=== PATIENT | female | born 1940 | race Caucasian/White ===

== ENCOUNTER 2018-01-25 07:12 | Observation (INO) | payer OTHER, MEDICAID ==
[2018-01-23 11:23] VITALS: BP 93/61
[2018-01-23 11:27] LABS: BASOPHILS # (AUTO) 0.02 x10^3/uL (0-0.1); BASOPHILS % (AUTO) 0 % (0-1); EOSINOPHILS # (AUTO) 0.04 x10^3/uL (0-0.4); EOSINOPHILS % (AUTO) 1 % (1-7); LYMPHOCYTES # (AUTO) 1.27 x10^3/uL (1-3.4); LYMPHOCYTES % (AUTO) 25 % (22-44); MD NO; MEAN CORPUSCULAR HEMOGLOBIN 20.8 pg (27.0-34.8); MEAN CORPUSCULAR HGB CONC 30.7 g/dL (32.4-35.8); MEAN CORPUSCULAR VOLUME 67.7 fL (80-100); MEAN PLATELET VOLUME 8.8 fL (7.4-10.4); MONOCYTES # (AUTO) 0.48 x10^3/uL (0.2-0.8); MONOCYTES % (AUTO) 9 % (2-9); NEUTROPHILS # (AUTO) 3.27 x10^3/uL (1.8-6.8); NEUTROPHILS % (AUTO) 65 % (42-75); PLATELET COUNT 109 x10^3/uL (130-400); RED BLOOD COUNT 4.57 x10^6/uL (3.82-5.3); RED CELL DISTRIBUTION WIDTH 21.5 % (9.6-15.2)
[2018-01-23 11:39] LABS: ALBUMIN 3.2 g/dL (3.4-5.0); ANION GAP 6 mmol/L (5-15); CALCIUM 8.7 mg/dL (8.5-10.1); CHLORIDE 110 mmol/L (98-107)
[2018-01-23 11:43] LABS: ALANINE AMINOTRANSFERASE 19 U/L (12-78); ALKALINE PHOSPHATASE 82 U/L (45-117); BILIRUBIN,TOTAL 0.7 mg/dL (0.2-1.0); CREATININE 0.92 mg/dL (0.55-1.02); TOTAL PROTEIN 7.4 g/dL (6.4-8.2)
[~2018-01-25] VITALS: Ht 157.5 cm; Wt 99.0 kg
[~2018-01-25 07:12] MED LIST: ACET325T14 PO; AMIO200T42 PO; ASPI-496 PO; CHOL200024 PO; CITA20TA6 PO; DABI150C PO; DIGO125T PO; DIGO125T81 PO; DIGO250T PO; ERGO500017 PO; FERR325T17 PO; FURO-93 PO; FURO20TA3 PO; HYDR-3237 PO; HYDR-3240 PO; LANS30CA PO; LEVO75TA5 PO; LISI-167 PO; LISI5TAB7 PO; LORA-446 PO; METO-93 PO; METO25TA35 PO; METO25TA91 PO; MIRA50TA PO; OMEG-14 PO; OMEG1CAP34 PO; POLY17PO5 PO; POTA10TA11 PO; POTA20TA89 PO; POTA20TA91 PO; RIVA20TA PO; WARF2.5T73 PO; WARF2.5T73 PO-COUM
[2018-01-25] MEDS ORDERED: SODIUM CHLORIDE 0.9% 1,000 ML IV SCH (07:33)
[2018-01-25] MEDS ORDERED: FENTANYL PF 100 MCG/2ML ONE (07:39)
[2018-01-25] MEDS ORDERED: MIDAZOLAM 1 MG/ML, 5ML ONE (07:39)
[2018-01-25] MEDS ORDERED: LIDOCAINE/PF 1%, 30ML ONE (07:39)
[2018-01-25] MEDS ORDERED: SERT50TA5 PO (07:46)
[2018-01-25] MEDS ORDERED: ACETAMINOPHEN 325 MG TABLET PO PRN (10:00)
[2018-01-25] MEDS ORDERED: ZOLPIDEM 5MG TABLET PO PRN (10:00)
[2018-01-25 14:00] VITALS: BP 108/72
[2018-01-25 20:30] VITALS: BP 101/68
[2018-01-25] MEDS ORDERED: RIVAROXABAN 20 MG TABLET PO SCH (21:00)
[2018-01-25] MEDS: POTASSIUM CHLORIDE 20 MEQ TAB.ER.PRT PO SCH (21:54)
[2018-01-25] MEDS: FUROSEMIDE 20 MG TABLET PO SCH (21:54)
[2018-01-26 02:00] VITALS: BP 106/64
[2018-01-26] MEDS: POTASSIUM CHLORIDE 20 MEQ TAB.ER.PRT PO SCH (08:00)
[2018-01-26] MEDS: FUROSEMIDE 20 MG TABLET PO SCH (08:00)
[2018-01-26 08:32] VITALS: BP 108/70
[2018-01-26] MEDS ORDERED: METOPROLOL SUCCINATE 50 MG TAB.ER.24H PO SCH (09:00)
[2018-01-26] MEDS ORDERED: OMEGA-3/FISH OIL CAPSULE PO SCH (09:00)
[2018-01-26] MEDS ORDERED: SERTRALINE 50MG TABLET PO SCH (09:00)
== END 2018-01-26 12:15 | disposition home or self-care (01) ==
LOC: CACL 07:12 → ORIP 09:34 → 5SO 10:17
PROVIDERS: ADMIT Internal Medicine Cardiovascular Disease; ATTEND Internal Medicine Cardiovascular Disease
DX: I48.91 Unspecified atrial fibrillation (principal); I48.92 Unspecified atrial flutter; I44.2 Atrioventricular block, complete; Z95.0 Presence of cardiac pacemaker
CPT/HCPCS: 36415; 71046; 80053; 85025; 93650; 99156; 99157; C1894; C2630; G0378; J2250; J3010; J3490

== ENCOUNTER 2018-01-31 12:36 | Day surgery (SDC) | payer OTHER, MEDICAID ==
[~2018-01-31] VITALS: Ht 157.5 cm; Wt 98.7 kg
[~2018-01-31 12:36] MED LIST changes: +SERT50TA5 PO
[2018-01-31] MEDS ORDERED: PLEASE ENTER HEIGHT AND WEIGHT MC SCH (13:00)
[2018-01-31] MEDS ORDERED: SODIUM CHLORIDE FLUSH 10ML SYR IVF ONE (13:00)
[2018-01-31 13:02] LABS: BASOPHILS # (AUTO) 0.03 x10^3/uL (0-0.1); BASOPHILS % (AUTO) 1 % (0-1); EOSINOPHILS # (AUTO) 0.03 x10^3/uL (0-0.4); EOSINOPHILS % (AUTO) 1 % (1-7); LYMPHOCYTES # (AUTO) 0.92 x10^3/uL (1-3.4); LYMPHOCYTES % (AUTO) 20 % (22-44); MD NO; MEAN CORPUSCULAR HEMOGLOBIN 20.9 pg (27.0-34.8); MEAN CORPUSCULAR HGB CONC 30.7 g/dL (32.4-35.8); MEAN CORPUSCULAR VOLUME 68.1 fL (80-100); MEAN PLATELET VOLUME 8.8 fL (7.4-10.4); MONOCYTES # (AUTO) 0.38 x10^3/uL (0.2-0.8); MONOCYTES % (AUTO) 8 % (2-9); NEUTROPHILS # (AUTO) 3.16 x10^3/uL (1.8-6.8); NEUTROPHILS % (AUTO) 70 % (42-75); PLATELET COUNT 132 x10^3/uL (130-400); RED BLOOD COUNT 4.64 x10^6/uL (3.82-5.3); RED CELL DISTRIBUTION WIDTH 20.9 % (9.6-15.2)
[2018-01-31 13:08] LABS: ALANINE AMINOTRANSFERASE 20 U/L (12-78); ANION GAP 7 mmol/L (5-15); CALCIUM 8.9 mg/dL (8.5-10.1); CHLORIDE 111 mmol/L (98-107); CREATININE 0.97 mg/dL (0.55-1.02)
[2018-01-31 13:22] LABS: ALKALINE PHOSPHATASE 75 U/L (45-117); BILIRUBIN,TOTAL 0.7 mg/dL (0.2-1.0); TOTAL PROTEIN 7.1 g/dL (6.4-8.2)
[2018-01-31] MEDS ORDERED: SODIUM CHLORIDE FLUSH 10ML SYR IVF PRN (14:30)
[2018-01-31] MEDS ORDERED: LORazepam 2 MG/ML, 1ML ONE (14:55)
[2018-01-31] MEDS ORDERED: LORazepam 2 MG/ML, 1ML IVPush PRN (15:00)
[2018-01-31] MEDS ORDERED: CEFAZOLIN PMX 1GM/50ML 50 ML IVPB ONE (15:00)
[2018-01-31] MEDS ORDERED: morphine SULFATE 10 MG/ML, 1ML IVPush PRN (15:00)
[2018-01-31] MEDS ORDERED: ONDANSETRON 2MG/ML, 2ML IVPush PRN (15:00)
[2018-01-31] MEDS ORDERED: ONDANSETRON ODT 4 MG PO PRN (15:00)
[2018-01-31 15:37] VITALS: BP 131/77
[2018-01-31 15:55] LABS: HEMOGLOBIN A1C 6.2 % (4.2-6.3)
[2018-01-31 20:35] VITALS: BP 129/70
[2018-01-31] MEDS ORDERED: TEMPLATE NON-FORMULARY MED. (Rivaroxaban** (Xarelto**) 20 MG) PO SCH (21:00)
[2018-01-31] MEDS: SODIUM CHLORIDE FLUSH 10ML SYR IVF SCH (21:28)
[2018-01-31] MEDS: SODIUM CHLORIDE 0.9% 1,000 ML IV SCH (22:45)
[2018-02-01 02:00] VITALS: BP 141/88
[2018-02-01] MEDS: SODIUM CHLORIDE 0.9% 1,000 ML IV SCH ×4 (05:57→22:27)
[2018-02-01] MEDS ORDERED: LIDOCAINE-MPF 1%, 5ML ONE (07:23)
[2018-02-01] MEDS ORDERED: CEFAZOLIN 1,000 MG ONE (07:23)
[2018-02-01] MEDS ORDERED: FENTANYL PF 100 MCG/2ML ONE (07:23)
[2018-02-01] MEDS ORDERED: MIDAZOLAM 1 MG/ML, 5ML ONE (07:23)
[2018-02-01] MEDS ORDERED: CEFAZOLIN PMX 1GM/50ML 50 ML ONE (07:23)
[2018-02-01] MEDS: SODIUM CHLORIDE FLUSH 10ML SYR IVF SCH ×3 (07:50→20:20)
[2018-02-01] MEDS: SENNA/DOCUSATE TABLET PO SCH (07:50)
[2018-02-01] MEDS: DIGOXIN 0.125 MG TABLET PO SCH (07:50)
[2018-02-01] MEDS: SERTRALINE 50MG TABLET PO SCH (07:50)
[2018-02-01 09:22] VITALS: BP 128/77
[2018-02-01] MEDS ORDERED: HOLD MEDICATION MC PRN (09:30)
[2018-02-01] MEDS ORDERED: ACETAMINOPHEN 325 MG TABLET PO PRN (09:30)
[2018-02-01 13:39] VITALS: BP 141/75
[2018-02-01] MEDS: CEFAZOLIN PMX 1GM/50ML 50 ML IVPB SCH ×2 (16:36→23:40)
[2018-02-01 20:36] VITALS: BP 122/56
[2018-02-02 03:55] VITALS: BP 118/61
[2018-02-02] MEDS: SODIUM CHLORIDE 0.9% 1,000 ML IV SCH (05:00)
[2018-02-02 07:40] VITALS: BP 130/76
[2018-02-02] MEDS: SERTRALINE 50MG TABLET PO SCH (08:05)
[2018-02-02] MEDS: DIGOXIN 0.125 MG TABLET PO SCH (08:05)
[2018-02-02] MEDS: SENNA/DOCUSATE TABLET PO SCH (08:05)
[2018-02-02] MEDS: SODIUM CHLORIDE FLUSH 10ML SYR IVF SCH ×2 (08:06)
[2018-02-02] MEDS: CEFAZOLIN PMX 1GM/50ML 50 ML IVPB SCH (08:06)
[2018-02-02] MEDS ORDERED: METOPROLOL SUCCINATE 50 MG TAB.ER.24H PO SCH (09:00)
[2018-02-02] MEDS ORDERED: FUROSEMIDE 20 MG TABLET PO SCH (09:00)
[2018-02-02] MEDS ORDERED: RIVA20TA PO (09:09)
== END 2018-02-05 12:30 | disposition home or self-care (01) ==
LOC: ED 14:15 → OUT 14:30 → UNDOADMIN 14:30 → EDIP 14:30 → 5SO 15:32 → UNDODISIN 02-02 12:30 → OUT 02-05 12:30
PROVIDERS: ATTEND Internal Medicine Cardiovascular Disease
DX: T82.110A Breakdown (mechanical) of cardiac electrode, initial encounter (principal); E44.1 Mild protein-calorie malnutrition; I50.32 Chronic diastolic (congestive) heart failure; D50.0 Iron deficiency anemia secondary to blood loss (chronic); E03.9 Hypothyroidism, unspecified; Z68.39 Body mass index [BMI] 39.0-39.9, adult; E66.9 Obesity, unspecified; F41.1 Generalized anxiety disorder; G47.33 Obstructive sleep apnea (adult) (pediatric); I48.2 Chronic atrial fibrillation; Y84.8 Other medical procedures as the cause of abnormal reaction of the patient, or of later complication, without mention of misadventure at the time of the procedure; I07.1 Rheumatic tricuspid insufficiency; I11.0 Hypertensive heart disease with heart failure; I35.8 Other nonrheumatic aortic valve disorders; K21.9 Gastro-esophageal reflux disease without esophagitis; K74.60 Unspecified cirrhosis of liver; Y71.2 Prosthetic and other implants, materials and accessory cardiovascular devices associated with adverse incidents; Z79.01 Long term (current) use of anticoagulants; Z87.891 Personal history of nicotine dependence; Z95.0 Presence of cardiac pacemaker; I25.2 Old myocardial infarction; Z95.3 Presence of xenogenic heart valve; Y92.89 Other specified places as the place of occurrence of the external cause
CPT/HCPCS: 33216; 33234; 36415; 71045; 80053; 80162; 83036; 85025; 93005; 93306; 96374; 99156; 99157; 99291; C1769; C1779; C1892; J0690; J2060; J2250; J3010; J7030; G0378

== ENCOUNTER → 2019-03-31 | Outpatient (CLI) | payer MEDICARE, MEDICAID ==
[~2019-03-31] MED LIST changes: +OMNIPAQUE 350 MG/ML, 100ML BOTTLE ONE; +SERT50TA28 PO; -SERT50TA5 PO; +WARF2.5T32 PO; +WARF2.5T32 PO-COUM; -WARF2.5T73 PO; -WARF2.5T73 PO-COUM
== END | disposition home or self-care (01) ==
LOC: CFH 13:15
PROVIDERS: ATTEND Internal Medicine Gastroenterology
DX: R18.8 Other ascites (principal); E66.9 Obesity, unspecified; K74.60 Unspecified cirrhosis of liver
CPT/HCPCS: 74170; 82565; Q9967

== ENCOUNTER → 2019-04-30 | Outpatient (CLI) | payer MEDICARE, MEDICAID ==
[~2019-04-30] MED LIST changes: -OMNIPAQUE 350 MG/ML, 100ML BOTTLE ONE
== END | disposition home or self-care (01) ==
LOC: CFH 15:45
PROVIDERS: ATTEND Internal Medicine Cardiovascular Disease
DX: I08.2 Rheumatic disorders of both aortic and tricuspid valves (principal); I42.0 Dilated cardiomyopathy; I10 Essential (primary) hypertension
CPT/HCPCS: 93306

== ENCOUNTER 2019-05-27 11:55 | Inpatient (IN) | payer MEDICARE, MEDICAID ==
[~2019-05-27] VITALS: Ht 154.9 cm; Wt 86.0 kg
[~2019-05-27 11:55] MED LIST changes: -DIGO125T PO; +DIGO125T85 PO; -DIGO250T PO; +DIGO250T3 PO; +FURO40TA6 PO; +LIDO700A20 TD; +POTA10CA PO; +PROP10TA16 PO; +SPIR25TA PO
[2019-05-27] MEDS ORDERED: SODIUM CHLORIDE FLUSH 10ML SYR IVF ONE (12:30)
[2019-05-27] MEDS ORDERED: PLEASE ENTER HEIGHT AND WEIGHT MC SCH (12:30)
[2019-05-27 12:59] LABS: MEAN CORPUSCULAR HEMOGLOBIN 28.5 pg (27.0-34.8); MEAN CORPUSCULAR HGB CONC 32.6 g/dL (32.4-35.8); MEAN CORPUSCULAR VOLUME 87.5 fL (80-100); MEAN PLATELET VOLUME 8.5 fL (7.4-10.4); PLATELET COUNT 137 x10^3/uL (130-400); RED BLOOD COUNT 4.39 x10^6/uL (3.82-5.3); RED CELL DISTRIBUTION WIDTH 19.8 % (9.6-15.2)
[2019-05-27 13:00] LABS: ALANINE AMINOTRANSFERASE 22 U/L (12-78); ALBUMIN 2.4 g/dL (3.4-5.0); ANION GAP 7 mmol/L (5-15); CALCIUM 8.7 mg/dL (8.5-10.1); CHLORIDE 107 mmol/L (98-107); CREATININE 2.27 mg/dL (0.55-1.02)
--- NOTE | 2019-05-27 13:01 | NUR ---
Pt arrives from Dr. Wright office. Pt for elevated potassium, pts family reports that she had 7 liters drained via paracentesis last week. Pt has multiple chronic problems and not well managed. Pt is not on dialysis at this time. Pt connected to monitors and call light in reach. Awaiting further orders.
[2019-05-27 13:17] LABS: ALKALINE PHOSPHATASE 166 U/L (45-117); TOTAL PROTEIN 7.5 g/dL (6.4-8.2)
--- NOTE | 2019-05-27 13:19 | NUR ---
Break RN: Critical digoxin 2.3 per Angi from [facility] notified.
[2019-05-27 13:36] LABS: BASOPHILS # (AUTO) 0.02 x10^3/uL (0-0.1); BASOPHILS % (AUTO) 1 % (0-1); EOSINOPHILS # (AUTO) 0.04 x10^3/uL (0-0.4); EOSINOPHILS % (AUTO) 1 % (1-7); LYMPHOCYTES % (AUTO) 14 % (22-44); MD SCAN; MONOCYTES # (AUTO) 0.47 x10^3/uL (0.2-0.8); MONOCYTES % (AUTO) 9 % (2-9); NEUTROPHILS # (AUTO) 3.86 x10^3/uL (1.8-6.8); NEUTROPHILS % (AUTO) 76 % (42-75)
[2019-05-27] MEDS ORDERED: SODIUM CHLORIDE FLUSH 10ML SYR IVF PRN (14:30)
--- NOTE | 2019-05-27 14:34 | NUR ---
PT RESTING IN BED, NADN. VSS.
--- NOTE | 2019-05-27 14:51 | NUR ---
IV flushed at familys request, patency verified and blood return present.
[2019-05-27] MEDS: SODIUM CHLORIDE 0.9% 1,000 ML IV SCH (15:15)
--- NOTE | 2019-05-27 15:19 | NUR ---
telephone report to [facility].
[2019-05-27] MEDS ORDERED: hydrALAzine 20 MG/ML, 1ML IVPush PRN (15:30)
[2019-05-27] MEDS ORDERED: SODIUM POLYSTYRENE SULFONATE ORAL SUSP PO ONE (15:30)
[2019-05-27 15:51] VITALS: BP 95/61
[2019-05-27] MEDS: HEPARIN 5,000 UNITS/ML, 1ML SQ SCH (16:05)
[2019-05-27] MEDS: ALBUMIN HUMAN 25% 100 ML IV SCH (16:37)
[2019-05-27 20:13] VITALS: BP 84/50
[2019-05-27 20:14] VITALS: BP 87/53
[2019-05-27 20:15] VITALS: BP 118/67
[2019-05-27 20:16] VITALS: BP 129/68
[2019-05-27 23:34] LABS: CLOSTRIDIUM DIFFICILE ANTIGEN NEGATIVE; CLOSTRIDIUM DIFFICILE TOXIN NEGATIVE (Negative)
[2019-05-28] MEDS: HEPARIN 5,000 UNITS/ML, 1ML SQ SCH ×4 (00:17→23:57)
[2019-05-28] MEDS: ALBUMIN HUMAN 25% 100 ML IV SCH ×5 (00:17→20:51)
[2019-05-28 00:26] VITALS: BP 92/55
[2019-05-28] MEDS: SODIUM CHLORIDE 0.9% 1,000 ML IV SCH (00:34)
[2019-05-28 05:07] LABS: CULTURE INDICATED? YES; MICROSCOPIC INDICATED
[2019-05-28 05:42] LABS: MEAN CORPUSCULAR HEMOGLOBIN 28.6 pg (27.0-34.8); MEAN CORPUSCULAR HGB CONC 32.5 g/dL (32.4-35.8); MEAN CORPUSCULAR VOLUME 87.9 fL (80-100); MEAN PLATELET VOLUME 8.3 fL (7.4-10.4); PLATELET COUNT 99 x10^3/uL (130-400); RED BLOOD COUNT 3.83 x10^6/uL (3.82-5.3); RED CELL DISTRIBUTION WIDTH 19.2 % (9.6-15.2)
[2019-05-28 05:49] LABS: ANION GAP 11 mmol/L (5-15); CALCIUM 8.2 mg/dL (8.5-10.1); CHLORIDE 109 mmol/L (98-107)
[2019-05-28 06:03] LABS: CREATININE 2.18 mg/dL (0.55-1.02)
[2019-05-28 06:09] LABS: BASOPHILS # (AUTO) 0.01 x10^3/uL (0-0.1); BASOPHILS % (AUTO) 0 % (0-1); EOSINOPHILS # (AUTO) 0.03 x10^3/uL (0-0.4); EOSINOPHILS % (AUTO) 1 % (1-7); LYMPHOCYTES # (AUTO) 0.56 x10^3/uL (1-3.4); LYMPHOCYTES % (AUTO) 15 % (22-44); MD SCAN; MONOCYTES # (AUTO) 0.35 x10^3/uL (0.2-0.8); MONOCYTES % (AUTO) 9 % (2-9); NEUTROPHILS # (AUTO) 2.77 x10^3/uL (1.8-6.8); NEUTROPHILS % (AUTO) 75 % (42-75)
[2019-05-28] MEDS: LEVOTHYROXINE 75 MCG TABLET PO SCH (08:12)
[2019-05-28] MEDS: SERTRALINE 50MG TABLET PO SCH (08:12)
[2019-05-28] MEDS: DIGOXIN 0.125 MG TABLET PO SCH (08:12)
[2019-05-28 09:06] VITALS: BP 108/69
[2019-05-28] MEDS ORDERED: D5%-LACTATED RINGERS 1,000 ML IV SCH ×2 (14:00→14:30)
[2019-05-28 14:47] VITALS: BP 108/71
[2019-05-28 19:47] VITALS: BP 101/67
[2019-05-29 02:00] VITALS: BP 97/62
[2019-05-29] MEDS: ALBUMIN HUMAN 25% 100 ML IV SCH ×4 (03:07→20:50)
[2019-05-29] MEDS: LEVOTHYROXINE 75 MCG TABLET PO SCH (05:36)
[2019-05-29 06:14] LABS: ALBUMIN 3.6 g/dL (3.4-5.0); ANION GAP 8 mmol/L (5-15); CALCIUM 8.3 mg/dL (8.5-10.1); CHLORIDE 109 mmol/L (98-107)
[2019-05-29 06:19] LABS: ALANINE AMINOTRANSFERASE 10 U/L (12-78); ALKALINE PHOSPHATASE 82 U/L (45-117); BILIRUBIN,TOTAL 1.2 mg/dL (0.2-1.0); CREATININE 2.07 mg/dL (0.55-1.02); TOTAL PROTEIN 6.7 g/dL (6.4-8.2)
[2019-05-29 06:51] VITALS: BP 93/57
[2019-05-29 08:09] LABS: POTASSIUM,URINE RANDOM 48 mmol/L; SODIUM,URINE RANDOM 6 mmol/L
[2019-05-29] MEDS: HEPARIN 5,000 UNITS/ML, 1ML SQ SCH (08:10)
[2019-05-29] MEDS: SERTRALINE 50MG TABLET PO SCH (08:11)
[2019-05-29 08:12] LABS: CHLORIDE,URINE RANDOM < 10 mmol/L
[2019-05-29] MEDS: DIGOXIN 0.125 MG TABLET PO SCH (10:25)
[2019-05-29] MEDS: D5%-LACTATED RINGERS 1,000 ML IV SCH (12:57)
[2019-05-29 13:07] VITALS: BP 92/60
[2019-05-29] MEDS ORDERED: Enoxaparin 1 mg/kg protocol SQ SCH (14:00)
[2019-05-29] MEDS ORDERED: D5%-LACTATED RINGERS 1,000 ML IV SCH (14:00)
[2019-05-29] MEDS: ENOXAPARIN 80 MG/0.8 ML SQ SCH (16:57)
[2019-05-29] MEDS: ONDANSETRON 2MG/ML, 2ML IVPush PRN (16:57)
[2019-05-29 20:56] VITALS: BP 110/65
[2019-05-29 23:11] LABS: POTASSIUM,URINE RANDOM 45 mmol/L; SODIUM,URINE RANDOM 8 mmol/L
[2019-05-29 23:12] LABS: CHLORIDE,URINE RANDOM < 10 mmol/L
[2019-05-29 23:27] LABS: MICROSCOPIC INDICATED
[2019-05-30 00:16] VITALS: BP 105/64
[2019-05-30] MEDS: D5%-LACTATED RINGERS 1,000 ML IV SCH ×3 (00:40→21:27)
[2019-05-30] MEDS: ALBUMIN HUMAN 25% 100 ML IV SCH ×4 (03:11→21:26)
[2019-05-30] MEDS: LEVOTHYROXINE 75 MCG TABLET PO SCH (05:38)
[2019-05-30 05:59] LABS: MEAN CORPUSCULAR VOLUME 87.8 fL (80-100); MEAN PLATELET VOLUME 8.3 fL (7.4-10.4); PLATELET COUNT 91 x10^3/uL (130-400); RED BLOOD COUNT 3.29 x10^6/uL (3.82-5.3); RED CELL DISTRIBUTION WIDTH 19.7 % (9.6-15.2)
[2019-05-30 06:11] LABS: CHLORIDE 110 mmol/L (98-107)
[2019-05-30 06:33] LABS: ALANINE AMINOTRANSFERASE 12 U/L (12-78); ALBUMIN 4.2 g/dL (3.4-5.0); ALKALINE PHOSPHATASE 63 U/L (45-117); ANION GAP 8 mmol/L (5-15); BILIRUBIN,TOTAL 1.2 mg/dL (0.2-1.0); CALCIUM 8.4 mg/dL (8.5-10.1); CREATININE 2.04 mg/dL (0.55-1.02); TOTAL PROTEIN 6.8 g/dL (6.4-8.2)
[2019-05-30 06:34] LABS: BASOPHILS # (AUTO) 0.01 x10^3/uL (0-0.1); BASOPHILS % (AUTO) 0 % (0-1); EOSINOPHILS # (AUTO) 0.02 x10^3/uL (0-0.4); EOSINOPHILS % (AUTO) 1 % (1-7); LYMPHOCYTES % (AUTO) 11 % (22-44); MD SCAN; MONOCYTES # (AUTO) 0.41 x10^3/uL (0.2-0.8); MONOCYTES % (AUTO) 11 % (2-9); NEUTROPHILS # (AUTO) 2.77 x10^3/uL (1.8-6.8); NEUTROPHILS % (AUTO) 77 % (42-75)
[2019-05-30 08:04] VITALS: BP 97/60
[2019-05-30] MEDS: SERTRALINE 50MG TABLET PO SCH (08:22)
[2019-05-30] MEDS: DIGOXIN 0.125 MG TABLET PO SCH (08:22)
[2019-05-30] MEDS: ENOXAPARIN 80 MG/0.8 ML SQ SCH (16:22)
[2019-05-30 16:27] VITALS: BP 94/61
[2019-05-30 20:52] VITALS: BP 101/67
[2019-05-31 01:33] VITALS: BP 118/79
[2019-05-31] MEDS: ONDANSETRON 2MG/ML, 2ML IVPush PRN ×3 (02:28→19:11)
[2019-05-31] MEDS: ALBUMIN HUMAN 25% 100 ML IV SCH ×4 (03:24→20:46)
[2019-05-31 04:45] LABS: BASOPHILS # (AUTO) 0.01 x10^3/uL (0-0.1); BASOPHILS % (AUTO) 0 % (0-1); EOSINOPHILS # (AUTO) 0.01 x10^3/uL (0-0.4); EOSINOPHILS % (AUTO) 0 % (1-7); LYMPHOCYTES % (AUTO) 10 % (22-44); MD NO; MEAN CORPUSCULAR HEMOGLOBIN 28.9 pg (27.0-34.8); MEAN CORPUSCULAR HGB CONC 32.7 g/dL (32.4-35.8); MEAN CORPUSCULAR VOLUME 88.5 fL (80-100); MEAN PLATELET VOLUME 8.6 fL (7.4-10.4); MONOCYTES # (AUTO) 0.58 x10^3/uL (0.2-0.8); MONOCYTES % (AUTO) 12 % (2-9); NEUTROPHILS # (AUTO) 3.97 x10^3/uL (1.8-6.8); NEUTROPHILS % (AUTO) 78 % (42-75); PLATELET COUNT 110 x10^3/uL (130-400); RED BLOOD COUNT 3.39 x10^6/uL (3.82-5.3); RED CELL DISTRIBUTION WIDTH 19.9 % (9.6-15.2)
[2019-05-31 04:50] LABS: ALANINE AMINOTRANSFERASE 12 U/L (12-78); ALBUMIN 4.8 g/dL (3.4-5.0); ANION GAP 10 mmol/L (5-15); CALCIUM 8.5 mg/dL (8.5-10.1); CHLORIDE 110 mmol/L (98-107); CREATININE 2.23 mg/dL (0.55-1.02)
[2019-05-31 04:56] LABS: ALKALINE PHOSPHATASE 59 U/L (45-117); BILIRUBIN,TOTAL 1.2 mg/dL (0.2-1.0); TOTAL PROTEIN 7.4 g/dL (6.4-8.2)
[2019-05-31] MEDS: LEVOTHYROXINE 75 MCG TABLET PO SCH (05:57)
[2019-05-31 08:11] VITALS: BP 126/75
[2019-05-31] MEDS: DIGOXIN 0.125 MG TABLET PO SCH (10:28)
[2019-05-31] MEDS: SERTRALINE 50MG TABLET PO SCH (10:28)
[2019-05-31] MEDS: D5%-LACTATED RINGERS 1,000 ML IV SCH (10:45)
[2019-05-31 13:06] VITALS: BP 106/71
[2019-05-31] MEDS: ENOXAPARIN 80 MG/0.8 ML SQ SCH (18:08)
[2019-05-31 18:31] VITALS: BP 121/78
[2019-06-01 01:36] VITALS: BP 152/78
[2019-06-01] MEDS: ALBUMIN HUMAN 25% 100 ML IV SCH ×4 (02:47→21:29)
[2019-06-01] MEDS: ONDANSETRON 2MG/ML, 2ML IVPush PRN ×2 (06:31→21:29)
[2019-06-01 07:44] VITALS: BP 118/76
[2019-06-01] MEDS: DIGOXIN 0.125 MG TABLET PO SCH (09:00)
[2019-06-01] MEDS: SERTRALINE 50MG TABLET PO SCH (09:00)
[2019-06-01] MEDS: LEVOTHYROXINE 75 MCG TABLET PO SCH (11:07)
[2019-06-01 12:53] VITALS: BP 141/81
[2019-06-01 14:35] VITALS: BP 115/76
[2019-06-01] MEDS: ENOXAPARIN 80 MG/0.8 ML SQ SCH (17:00)
[2019-06-01 19:49] VITALS: BP 104/63
[2019-06-01] MEDS ORDERED: MELATONIN 5 MG TABLET PO PRN (23:00)
[2019-06-02 02:20] VITALS: BP 112/68
[2019-06-02] MEDS: ALBUMIN HUMAN 25% 100 ML IV SCH ×2 (02:32→11:04)
[2019-06-02] MEDS: LEVOTHYROXINE 75 MCG TABLET PO SCH (02:40)
[2019-06-02] MEDS: ONDANSETRON 2MG/ML, 2ML IVPush PRN (03:37)
[2019-06-02] MEDS: PROMETHAZINE 25 MG/ML, 1ML IM PRN ×2 (05:02→11:05)
[2019-06-02 07:26] VITALS: BP 113/6
[2019-06-02] MEDS ORDERED: FUROSEMIDE 40 MG TABLET PO SCH (09:00)
[2019-06-02] MEDS: SERTRALINE 50MG TABLET PO SCH (09:00)
[2019-06-02] MEDS: DIGOXIN 0.125 MG TABLET PO SCH (09:00)
[2019-06-02] MEDS ORDERED: SPIRONOLACTONE 25 MG TABLET PO SCH (09:00)
[2019-06-02] MEDS ORDERED: LIDOCAINE 1%, 20ML ONE (09:45)
[2019-06-02] MEDS ORDERED: FLUMAZENIL 0.1 MG/1 ML, 5ML ONE (09:57)
[2019-06-02] MEDS ORDERED: NALOXONE 1 MG/ML, 2ML ONE (09:57)
[2019-06-02] MEDS ORDERED: MIDAZOLAM 1 MG/ML, 5ML ONE (09:57)
[2019-06-02] MEDS ORDERED: FENTANYL PF 100 MCG/2ML ONE (09:57)
[2019-06-02] MEDS ORDERED: ONDANSETRON 2MG/ML, 2ML IVPush PRN (12:00)
[2019-06-02] MEDS ORDERED: LORazepam 2 MG/ML, 1ML IVPush PRN (12:00)
[2019-06-02] MEDS ORDERED: MORPHINE 30MG/30ML PCA.SYR IV PRN (12:00)
[2019-06-02] MEDS ORDERED: ATROPINE OPHTH SOLN 1%, 5ML PO PRN (12:00)
[2019-06-02] MEDS ORDERED: SENNA/DOCUSATE TABLET PO SCH (21:00)
== END 2019-06-02 13:34 | disposition hospice, home (50) | DRG 441 ==
LOC: ED 14:15 → EDIP 14:16 → ED 14:32 → 4WST 15:37
PROVIDERS: ADMIT Internal Medicine; ATTEND Hospitalist
PROC: 0JH83XZ Insertion of Tunneled Vascular Access Device into Abdomen Subcutaneous Tissue and Fascia, Percutaneous Approach (ICD-10-PCS; principal; 2019-06-02)
PROC: 0W9G30Z Drainage of Peritoneal Cavity with Drainage Device, Percutaneous Approach (ICD-10-PCS; 2019-06-02)
DX: K72.90 Hepatic failure, unspecified without coma (principal); K76.7 Hepatorenal syndrome; I13.0 Hypertensive heart and chronic kidney disease with heart failure and stage 1 through stage 4 chronic kidney disease, or unspecified chronic kidney disease; E87.1 Hypo-osmolality and hyponatremia; I50.32 Chronic diastolic (congestive) heart failure; N17.9 Acute kidney failure, unspecified; K76.6 Portal hypertension; R18.8 Other ascites; I42.9 Cardiomyopathy, unspecified; K74.60 Unspecified cirrhosis of liver; I35.0 Nonrheumatic aortic (valve) stenosis; I48.91 Unspecified atrial fibrillation; E87.5 Hyperkalemia; E86.9 Volume depletion, unspecified; D64.9 Anemia, unspecified; E03.9 Hypothyroidism, unspecified; G47.33 Obstructive sleep apnea (adult) (pediatric); K59.00 Constipation, unspecified; N18.9 Chronic kidney disease, unspecified; Z51.5 Encounter for palliative care; Z95.0 Presence of cardiac pacemaker; Z95.2 Presence of prosthetic heart valve; I25.2 Old myocardial infarction; Z90.49 Acquired absence of other specified parts of digestive tract; Z79.899 Other long term (current) drug therapy
CPT/HCPCS: 36415; 49418; 71045; 76700; 80048; 80053; 80162; 81001; 82436; 82570; 82962; 83735; 83880; 84100; 84133; 84300; 84443; 84550; 85025; 87086; 87324; 93005; 96374; 96375; 96376; 99156; 99157; G0378; J1644; J1650; J2250; J2405; J2550; J3010; P9047; C1729; J2310; J7030; J7121